=== PATIENT | female | born 1930 | race Caucasian/White ===

== ENCOUNTER 2017-12-27 09:13 | Outpatient (CLI) | payer MEDICARE, BC ==
[2017-12-27] MEDS ORDERED: Iopamidol 370 76% 100 ML VIAL ONE (10:00)
== END 2017-12-27 09:14 | disposition home or self-care (01) ==
LOC: BICCT 09:13
PROVIDERS: ATTEND Otolaryngology
DX: R22.1 Localized swelling, mass and lump, neck (principal); E07.9 Disorder of thyroid, unspecified
CPT/HCPCS: 70491

== ENCOUNTER 2018-01-04 10:00 | Day surgery (SDC) | payer MEDICARE, BC ==
[2018-01-03 13:54] VITALS: BMI 26.6
[~2018-01-04 10:00] MED LIST: FLU VACC TS2017-18 (>65YR) 0.5 ML SYRINGE IM ONE; Prevnar 13-Val Conj/PF 0.5 ML SYRINGE IM ONE
[2018-01-04] MEDS ORDERED: Lidocaine 1% PF 5 ML VIAL ONE (10:31)
[2018-01-04 11:22] VITALS: BP 184/74; TEMP 98.2
--- NOTE | 2018-01-04 13:12 | ULT ---
THYROID SONOGRAM: HISTORY: Abnormal CAT scan. Thyroid mass. FINDINGS: Right thyroid lobe is 4.8 cm and contains heterogeneous complex cystic nodules measuring up to 2.6 cm . There is some thickening of the wall of the more superior complex cystic nodule. Isthmus is 0.4 cm. Left lobe is 4.2 cm with a dominant simple cystic lesion measuring up to 3.0 cm. IMPRESSION: Multiple bilateral thyroid nodules as detailed above. Given the complexity of the dominant right thy roid lobe nodule, it will be chosen for sampling. Fine needle aspiration is pending. POS: FLAVIO
--- NOTE | 2018-01-04 16:58 | ULT ---
SONOGRAPHIC GUIDED THYROID MASS FNA 01/04/18 HISTORY: Complex cystic mass right thyroid gland. FINDINGS: After explaining the procedure and answering all questions, The anterior aspect of the neck was prepp ed and draped in the usual sterile fashion. Sterile technique, buffered local anesthesia, sonographic guidance, and a medial approach were used to carefully advance a 25 gauge needle into the complex cy stic mass of the right thyroid lobe. Position was confirmed with sonography. Fluid was unable to be a spirated, therefore back and forth motion was obtained with four needles to obtain tissue and submit to pathology for evaluation. Tissue sampling was focused on the nodular soft tissue component of the anterior margin of the complex cystic nodule. Postprocedure imaging shows no evidence of complication. Patient tolerated the procedure well and was dismissed in good condition. IMPRESSION: Technically successful sonographic guided FNA right thyroid lobe mass. Pathology is pending. POS: FLAVIO
== END 2018-01-04 11:50 | disposition home or self-care (01) ==
LOC: ULT 10:00
PROVIDERS: ATTEND Otolaryngology
PROC: 0GBH3ZX Excision of Right Thyroid Gland Lobe, Percutaneous Approach, Diagnostic (ICD-10-PCS; principal; 2018-01-04)
DX: E04.1 Nontoxic single thyroid nodule (principal); Z88.0 Allergy status to penicillin; Z88.6 Allergy status to analgesic agent; Z88.1 Allergy status to other antibiotic agents; Z91.013 Allergy to seafood; Z79.899 Other long term (current) drug therapy; Z79.51 Long term (current) use of inhaled steroids
CPT/HCPCS: 10022; 76536; 76942; 88173; J2001

== ENCOUNTER 2019-11-12 13:43 | Outpatient (CLI) | payer MEDICARE, BC ==
--- NOTE | 2019-11-12 14:36 | RAD ---
3 views lumbar spine: 11/12/2019 COMPARISON: 03/16/2017 HISTORY: Spondylosis of the lumbar spine FINDINGS: There is atherosclerotic calcification of the abdominal aorta. Prior imaging demonstrated 6 lumbar type vertebral bodies. Bilateral L5 and L6 pedicle screws are present with vertically oriented interlocking rods. Detailed assessment of the hardware is limited as no frontal imaging is p rovided. There is disc space narrowing with degenerative endplate change at all levels within the lumbar spine , most prominent at L1-2, L2-3, and L3-4. Neutral lateral imaging demonstrates anterolisthesis measuring 7 mm at L4-5 and 1.3 cm at L5-6. These levels of anterolisthesis do not appear significantly changed on the flexion or extension imagi ng. IMPRESSION: Stable postoperative and degenerative change within the lumbar spine as described above.
== END 2019-11-12 13:44 | disposition home or self-care (01) ==
LOC: RAD 13:43
PROVIDERS: ATTEND Nurse Practitioner Family
DX: M47.816 Spondylosis without myelopathy or radiculopathy, lumbar region (principal); Z98.890 Other specified postprocedural states
CPT/HCPCS: 72100; 72120

== ENCOUNTER 2019-12-20 06:46 | Day surgery (SDC) | payer MEDICARE, BC ==
[2019-12-19 12:11] VITALS: BMI 24.0
[2019-12-20 08:50] VITALS: BP 182/79; TEMP 97
[2019-12-20] MEDS ORDERED: FLU VACC TS2019-20(65YR UP)/PF 180 MCG/0.5 ML SYRINGE IM ONE (09:00)
--- NOTE | 2019-12-20 09:14 | RAD ---
PROCEDURE: XR Myelogram Lumbar Spine PROVIDED CLINICAL HISTORY: Spondylolisthesis, lumbar region. Low back pain and lower extremity pain. COMPARISON: None TECHNIQUE: After informed consent was obtained, the patient was placed on the fluoroscopy table in supine positi on. An area overlying the L4-5 level was marked, and the area was meticulously prepped and draped in usual sterile fashion. Skin and subcutaneous tissues were infiltrated with buffered 1% lidocaine f or local anesthesia. A 22-gauge spinal needle was advanced into the thecal sac. The inner stylette was removed with a return of blood-tinged cerebral spinal fluid. Approximately 8 mL of Isovue M200 co ntrast was instilled into the thecal sac. Inner stylette was replaced, and the needle was removed. Patient tolerated the procedure well and without immediate consultation. Patient was transported to [facility] for further imaging. Fluoroscopy: Time-0.6 minutes Dose-84.3 mcg meter squared FINDINGS: [employer] images of the lumbar spine are compared to views of the lumbar spine on 11/12/2019. Again noted are postsurgical changes at the L4-5 level with bipedicular screws and posterior rods at this level. Laminectomy defects are seen extending from the L2-3 level to the L4-5 level. There is stable degrees of anterolisthesis of L3 on L4 and L4 on L5. Multilevel degenerative changes are seen with narrowing of the intervertebral disc spaces at all levels and scattered areas of endplate degenerativ e changes. Right convex rotoscoliosis thoracolumbar spine is present. Vascular locations are seen in the abdominal aorta and iliac arteries. Surgical clips overlie the right upper quadrant. A lumbar myelogram was successfully performed with puncture at the L3-[address] scan lum bar spine for further details. IMPRESSION: 1. Multilevel degenerative and postsurgical changes lumbar spine with stable degrees of anterolisthes is of L3 on L4 and L4 and L5. 2. Technically successful lumbar myelogram.
[2019-12-20] MEDS ORDERED: Iopamidol-M 200 41% 20 ML VIAL ONE (10:19)
--- NOTE | 2019-12-20 11:38 | CT ---
CT lumbar spine without contrast: HISTORY: Spondylolisthesis, lumbar region. Low back pain and lower extremity pain. COMPARISON: Prior CT lumbar spine postmyelogram on 03/16/2017 FINDINGS: Vascular calcifications are again seen in the abdominal aorta and involving the iliac arteries. Colon ic diverticulosis is additional. Multilevel degenerative changes as well as postoperative changes of the lumbar spine are again seen. The bipedicular screws and posterior rods as well as transverse bar transfixing the L4-5 level are again seen without hardware complication. Laminectomy defects extending from the 2-3 level to the L4- 5 level are again seen. The degrees of anterolisthesis of L3 and L4 and L4 and L5 are unchanged measuring approximately 4 mm at L3-4 level and 10 mm at the L4-5 level. Right convex scoliosis thorac olumbar spine is present. Vacuum phenomenon is seen in the intervertebral discs at multiple levels of the lower thoracic and up per lumbar spine. T12-L1: Loss of intervertebral disc height is present. Disc osteophyte complex is noted with mild fac et degenerative changes. Mild effacement of the ventral thecal sac is present. Neural foramina are patent. L1-2: Endplate degenerative changes are seen. Broad-based disc osteophyte complex and mild facet hype rtrophic changes are noted. Mild effacement of the anterior aspect of the thecal sac is noted. Neural foramina are patent. Minimal disc osteophyte complex is present. No significant narrowing of the central spinal canal. Fac et hypertrophic changes are seen at this level. Right neural foramen is patent, but there is mild left-sided neural foraminal narrowing. L2-3: Prominent endplate degenerative changes are seen with narrowing of the intervertebral disc spac e. Broad-based disc osteophyte complex and facet hypertrophic changes are noted. There is a greater left lateral concentric disc bulge which encroaches on the left neural foramen. This results in moder ate to severe left and mild right-sided neural foraminal narrowing. The disc bulge also contacts the traversing left L3 nerve root. Slight effacement of the left anterolateral aspect of thecal sac a re present at this level. L3-4: Grade 1 anterolisthesis is present at this level. Laminectomy defect is seen posteriorly. Mild disc osteophyte complex is present. This results in moderate to severe left-sided neural foraminal narrowing with mild right-sided neural foraminal narrowing. No significant narrowing of the thecal sa c. L4-5: Grade 1 anterolisthesis of L4 on L5 is again present. [id number] bilateral neural foramin al narrowing is seen primarily secondary to the anterolisthesis at this level. Thecal sac is patent at this level. L5-S1: Minimal disc osteophyte complex is present without significant narrowing of the central spinal canal. Facet hypertrophic changes are present greater on the left. Findings result in mild left-sided neural foraminal narrowing. Right neural foramen is patent. IMPRESSION: 1. Overall stable multilevel degenerative as well as postoperative changes of the lumbar spine as kimberly cribed above. 2. Right convex scoliosis thoracolumbar spine.
== END 2019-12-20 10:00 | disposition home or self-care (01) ==
LOC: RAD 06:46
PROVIDERS: ATTEND Specialist
PROC: B02B1ZZ Computerized Tomography (CT Scan) of Spinal Cord using Low Osmolar Contrast (ICD-10-PCS; principal; 2019-12-20)
DX: M43.16 Spondylolisthesis, lumbar region (principal); M48.061 Spinal stenosis, lumbar region without neurogenic claudication; M47.816 Spondylosis without myelopathy or radiculopathy, lumbar region; M75.51 Bursitis of right shoulder; M70.62 Trochanteric bursitis, left hip; K57.30 Diverticulosis of large intestine without perforation or abscess without bleeding; I70.0 Atherosclerosis of aorta; I70.8 Atherosclerosis of other arteries; M19.90 Unspecified osteoarthritis, unspecified site; I10 Essential (primary) hypertension; F41.9 Anxiety disorder, unspecified; F32.9 Major depressive disorder, single episode, unspecified; E89.0 Postprocedural hypothyroidism; K21.9 Gastro-esophageal reflux disease without esophagitis; Z79.52 Long term (current) use of systemic steroids; Z79.82 Long term (current) use of aspirin; Z79.899 Other long term (current) drug therapy; Z88.0 Allergy status to penicillin; Z88.1 Allergy status to other antibiotic agents; Z88.5 Allergy status to narcotic agent; Z88.8 Allergy status to other drugs, medicaments and biological substances; Z91.013 Allergy to seafood; Z98.890 Other specified postprocedural states
CPT/HCPCS: 62304; 72132; Q9966